=== PATIENT | male | born 1960 | race Caucasian/White ===

== ENCOUNTER 2023-12-04 08:00 | Outpatient (CLI) | payer OTHER ==
--- NOTE | 2023-12-04 16:54 | XRAY Report ---
PROCEDURE: Shoulder 2+V RT INDICATIONS: PAIN IN RIGHT SHOULDER TECHNIQUE: 3 views of the shoulder were acquired. COMPARISON: None. FINDINGS: Bones: No fractures or dislocations. Mild degenerative changes at the right AC joint. No suspicious bony lesions. Visualized ribs appear intact. Soft tissues: No suspicious soft tissue calcifications. The visualized lungs are within normal limi ts. IMPRESSION: Mild degenerative changes at the right AC joint are seen. If clinically indicated MRI could be considered for further evaluation. Reviewed by: Tomi Mcknight MD on 12/04/2023 4:47 PM PDT Approved by: Tomi Mcknight MD on 12/04/2023 4:47 PM PDT Station ID: [id number]
== END 2023-12-04 23:59 | disposition home or self-care (01) ==
LOC: DI.N 08:00
PROVIDERS: ATTEND Physician Assistant Medical
DX: M19.011 Primary osteoarthritis, right shoulder (principal)